=== PATIENT | female | born 1930 | race African-American/Black ===

== ENCOUNTER 2020-01-20 18:18 | Inpatient (IN) | payer MEDICARE, MEDICAID, OTHER ==
[2020-01-20] MEDS ORDERED: Dexamethasone 10 MG/ML VIAL ONE (19:17)
[2020-01-20 19:51] LABS: Hemoglobin 14.1 g/dL (12.0-16.0); Mean Corpuscular HGB CONC 33.1 g/dL (32.0-36.0); Mean Corpuscular Hemoglobin 30.9 pg (27.0-31.0); Mean Corpuscular Volume 93.5 fL (78.0-98.0); Mean Platelet Volume 9.4 fL (7.4-10.4); Platelet Count 199 thou/uL (130-400); RBC Distribution Width 12.5 % (11.5-14.5); Red Blood Cell (RBC) Count 4.55 mill/uL (4.20-5.40); White Blood Cell (WBC) Count 9.5 thou/uL (4.8-10.8)
--- NOTE | 2020-01-20 20:03 | RAD ---
PORTABLE CHEST: 01/20/20 HISTORY: Dyspnea. COVID positive. COMPARISON: 08/09/06 FINDINGS/IMPRESSION: Patient is rotated distorting the chest. Mild cardiomegaly and mild vascular engorgement. I cannot ex clude hazy ground glass infiltrates in the mid lung powell. No significant effusion. POS: AGW
[2020-01-20 20:09] LABS: Band 11 % (5-11); Lymphocytes 2 % (21-51); MDiff Complete? YES; Monocytes 7 % (0-10); Neutrophil 75 % (42-75); Platelet Morphology Comment Appears Adequate; RBC Morphology Normal; Reactive Lymphocytes 5 % (0-10)
[2020-01-20 20:46] LABS: Albumin 3.2 g/dL (3.4-4.8)
[2020-01-20 20:47] LABS: Chloride 98 mmol/L (98-107); Potassium 3.8 mmol/L (3.5-5.1); Sodium 134 mmol/L (136-145)
[2020-01-20 20:48] LABS: Calcium 8.2 mg/dL (7.8-10.44); Glucose 228 mg/dL (83-110)
[2020-01-20 20:49] LABS: Protein, Total 7.2 g/dL (6.0-8.3)
[2020-01-20 20:50] LABS: Anion Gap 18 mmol/L (10-20); Bilirubin, Total 1.3 mg/dL (0.2-1.2); Carbon Dioxide 22 mmol/L (23-31)
[2020-01-20 20:51] LABS: Alkaline Phosphatase 66 U/L (40-110)
[2020-01-20 20:52] LABS: Calc. Creatinine Clearance 0 mL/min (70-130); Estimated GFR-MDRD 47
[2020-01-20 20:53] LABS: AST (SGOT) 48 U/L (5-34); BUN (Urea Nitrogen) 32 mg/dL (9.8-20.1)
[2020-01-20 20:54] LABS: ALT (SGPT) 30 U/L (8-55); Lipase 42 U/L (8-78)
[2020-01-20 20:55] LABS: CK (CPK) 494 U/L (29-168)
--- NOTE | 2020-01-20 21:26 | PDOC.HHP ---
Hospitalist HPI - History of Present Illness Hypoxia, Covid positive History of Present Illness: PCP: Dr. Hussain Vieyra The majority of the H&P was taken from the ER notes and group home staff via telephone because the patient's work of breathing made it difficult for her to speak while on NIPPV. The patient is an 89-year-old female with a past medical history significant for CHF, hypertension, hypothyroidism, TIA that presents to the emergency department via EMS from a group home for hypoxia. Patient recently tested positive for Covid 19 virus. Nursing staff reports that the patient became hypoxic with a reported SPO2 in the 70s with associated fever, general malaise and myalgias. EMS was called and the patient was taken the emergency department for further evaluation. ED Course: VITAL SIGNS SatJan 20, 2020 18:48 SUGEY Cruz Miranda BP: 150/88, Pulse: 100, Resp: 30, Temp: 100 (Axillary), O2 sat: 89 on (Non Rebreather), Time: 01/20/2020 18:48. VITAL SIGNS SatJan 20, 2020 19:16 SUGEY Cruz Miranda Pulse: 84, O2 sat: 96 on (Bipap), Time: 01/20/2020 19:16. VITAL SIGNS SatJan 20, 2020 19:18 RESP. Collins Michael Pulse: 100, Resp: 34, Time: 01/20/2020 19:18. VITAL SIGNS SatJan 20, 2020 19:16 SUGEY Cruz Miranda BP: 166/110, MAP: 128, Pulse: 93, Resp: 34, Pain: UTR, O2 sat: 96 on (Bipap), Time: 01/20/2020 19:16. VITAL SIGNS SatJan 20, 2020 20:00 SUGEY Cruz Miranda BP: 114/73, MAP: 86, Pulse: 109, Resp: 30, Pain: UTR, O2 sat: 96 on (Bipap), Time: 01/20/2020 20:00. VITAL SIGNS SatJan 20, 2020 20:41 SUGEY Cruz Miranda BP: 136/84, MAP: 101, Pulse: 107, Resp: 30, O2 sat: 96 on (Bipap), Time: 01/20/2020 20:41. Medication administration: 324 mg aspirin. Lovenox 1 milligram per kilogram Rocephin 2 g IVPB Azithromycin 500 mg IVPB Decadron 10 mg IVP 1 L normal saline Hospitalist ROS - Review of Systems ROS unobtainable: due to mental status (Patient was somnolent with increased work of breathing on NIPPV, made it difficult her speaking complete sentences.) All other systems reviewed; all pertinent +/- noted in HPI/Subj - Medication Medications: amLODIPine tablet : Strength - 10 mg : ORAL Patient Dose: once a day. aspirin oral tablet : Strength - 81 mg : ORAL Patient Dose: 81 mg once a day. Potassium chloride packet : Strength - 10 mEq : ORAL Patient Dose: 1 tablet every morning levothyroxine oral tablet : Strength - 50 mcg : ORAL Patient Dose: Unknown. 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 - Family History Other Family History: Unable to obtain at time of interview. - Social History Smoking Status: Unknown if ever smoked Alcohol: reports: None Drugs: reports: none Living Situation: [facility]) Occupation: Does not work - Exam General Appearance: ill appearing General - other findings: Somnolent, increased work of breathing on NIPPV Eye: anicteric sclera ENT: normocephalic atraumatic, dry oral mucosa Neck: supple, symmetric, no JVD Heart: RRR, no gallops, no rubs, normal peripheral pulses, II/IV Respiratory: rales, rhonchi, tachypneic Respiratory - other findings: On an IPPV Gastrointestinal: soft, non-tender, normal bowel sounds, no guarding, no rigidity Extremities: no cyanosis, no edema Neurological: no focal deficits. negative: facial droop, speech deficit Neurological - other findings: Somnolent Musculoskeletal: generalized weakness Psychiatric: oriented to person, oriented to place, oriented to time, somnolent Hospitalist Results - Labs Result Diagrams: 01/20/20 19:33 01/20/20 20:22 Lab results: WBC 9.5 thou/uL (4.8-10.8) 01/20/20 19:33 Hgb 14.1 g/dL (12.0-16.0) 01/20/20 19:33 Hct 42.5 % (36.0-47.0) 01/20/20 19: MCV 93.5 fL (78.0-98.0) 01/20/20 19:33 Plt Count 199 thou/uL (130-400) 01/20/20 19:33 Band Neuts % (Manual) 11 % (5-11) 01/20/20 19:33 Sodium 134 mmol/L (136-145) L 01/20/20 20:22 Potassium 3.8 mmol/L (3.5-5.1) 01/20/20 20:22 Chloride 98 mmol/L (98-107) 01/20/20 20:22 Carbon Dioxide 22 mmol/L (23-31) L 01/20/20 20:22 BUN 32 mg/dL (9.8-20.1) H 01/20/20 20:22 Creatinine 1.29 mg/dL (0.6-1.1) H 01/20/20 20:22 Glucose 228 mg/dL (83-110) H 01/20/20 20:22 Lactic Acid 1.0 mmol/L (0.5-2.2) 01/20/20: Calcium 8.2 mg/dL (7.8-10.44) 01/20/20 20:22 Total Bilirubin 1.3 mg/dL (0.2-1.2) H 01/20/20 20:22 AST 48 U/L (5-34) H 01/20/20 20:22 ALT 30 U/L (8-55) 01/20/20 20:22 Alkaline Phosphatase 66 U/L (40-110) 01/20/20 20:22 Creatine Kinase 494 U/L (29-168) H 01/20/20 20:22 Troponin I 0.020 ng/mL (< 0.028) 01/20/20: B-Natriuretic Peptide 96.6 pg/mL (0-100) 01/20/20 19:33 Serum Total Protein 7.2 g/dL (6.0-8.3) 01/20/20 20:22 Albumin 3.2 g/dL (3.4-4.8) L 01/20/20 20:22 Lipase 42 U/L (8-78) 01/20/20 20:22 - EKG Interpretation EKG: Sinus tachycardia pulse 103 left atrial enlargement left ventricular hypertrophy no STEMI. - Radiology Interpretation Chest x-ray Status: report reviewed by me Additional Comment: FINDINGS/IMPRESSION: Patient is rotated distorting the chest. Mild cardiomegaly and mild vascular engorgement. I cannot ex clude hazy ground glass infiltrates in the mid lung powell. No significant effusion. Hospitalist H&P A/P - Problem (1) Acute respiratory failure with hypoxia Code(s): J96.01 - ACUTE RESPIRATORY FAILURE WITH HYPOXIA Status: Acute (2) Pneumonia due to COVID-19 virus Code(s): U07.1 - COVID-19; J12.89 - OTHER VIRAL PNEUMONIA Status: Acute (3) Sepsis Code(s): A41.9 - SEPSIS, UNSPECIFIED ORGANISM Status: Acute (4) CHF (congestive heart failure) Code(s): I50.9 - HEART FAILURE, UNSPECIFIED Status: Chronic (5) Hypertension Code(s): I10 - ESSENTIAL (PRIMARY) HYPERTENSION Status: Chronic (6) Hypothyroidism Code(s): E03.9 - HYPOTHYROIDISM, UNSPECIFIED Status: Chronic (7) CKD (chronic kidney disease), stage III Code(s): N18.30 - CHRONIC KIDNEY DISEASE, STAGE 3 UNSPECIFIED Status: Chronic Qualifiers: Chronic kidney disease stage 3 subtype: stage 3a (GFR 45-59) Qualified Code(s): N18.31 - Chronic kidney disease, stage 3a - Plan Plan: 89/F with PMH recent Covid positive that presents for worsening hypoxia. Admit to [facility], inpatient status. Expected length of stay greater than 2 midnights. Presented febrile, hypotensive, tachycardic, tachypneic, hypoxic. EKG sinus tachycardia, LVH, no ST elevation. CXR mild vascular engorgement, cannot exclude hazy groundglass infiltrates in the mid lung powell. Mild cardiomegaly. Troponin negative, BNP 96, CK 494, DD 1.78 WBC 9.5, lymphocytopenia, LA 1.0 BUN 32, creatinine 1.29, BG 228 #Acute respiratory failure with hypoxia Prognosis is poor. Patient WOB Comfort care to help decrease WOB. Continue azithromycin and Rocephin. Continue dexamethasone. Lovenox 1 mg/kg. Continue NIPPV. Consult ID. Trend acute phase reactants. Isolation precautions. #Pneumonia due to COVID-19 virus Prognosis is poor. Interventions as above. #Sepsis Likely due to problems #2. Blood/urine cultures pending. Continue antibiotics as above. #CHF EKG as above, CXR mild vascular engorgement. Troponin is negative, BNP 96. Will trend troponins. Continue aspirin. #Hypertension Patient presented mildly hypertensive. Restart home dose of amlodipine. #Hypothyroidism Check TSH. Restart home dose of levothyroxine. #CKD stage III Presented BUN 32, creatinine 1.29 No baseline for comparison. No pharmacological DVT prophylaxis. No GI prophylaxis. DNAR, confirmed by group home & son via telephone. MPOA is Nabeel Alarcon at [phone]. Discussed the case with Dr. Roberto Brennan.
[2020-01-20] MEDS ORDERED: Acetaminophen 650 MG Suppository PR PRN (22:33)
[2020-01-20] MEDS ORDERED: Acetaminophen 325 MG TAB PO PRN (22:33)
[2020-01-20] MEDS ORDERED: Ondansetron PF 4 MG/2 ML Vial IVP PRN (22:33)
[2020-01-20] MEDS ORDERED: Dextrose 50% Abboject 50 ML SYRINGE SLOW IVP PRN (23:02)
[2020-01-20] MEDS ORDERED: HumaLOG 300 UNITS/3 ML VIAL SC PRN ×2 (23:02)
[2020-01-20] MEDS ORDERED: Dextrose 5% in Water 1,000 ML IV PRN (23:02)
[2020-01-20] MEDS ORDERED: Morphine 2 MG/ML VIAL SLOW IVP PRN (23:30)
[2020-01-20] MEDS ORDERED: Azithromycin 500 MG VIAL ONE (23:41)
[2020-01-20] MEDS ORDERED: cefTRIAXone\\ROCEPHIN 2 GM VIAL ONE (23:41)
[2020-01-20] MEDS ORDERED: Morphine 4 MG/ML VIAL ONE (23:41)
[2020-01-20] MEDS ORDERED: Enoxaparin Sodium 40 MG/0.4 ML SYRINGE ONE (23:46)
[2020-01-20 23:47] LABS: Troponin I 0.028 ng/mL (< 0.028)
[2020-01-20] MEDS ORDERED: Morphine 2 MG/ML VIAL ONE (23:49)
[2020-01-20] MEDS ORDERED: Enoxaparin Sodium 100 MG/ML SYRINGE ONE (23:57)
[2020-01-21 02:51] LABS: #Lymphocytes 0.6 thou/uL (1.20-3.40); #Monocytes 0.4 thou/uL (0.11-0.59); %Basophils 0.3 % (0.0-1.0); %Eosinophils 0.2 % (0.0-10.0); %Lymphocytes 5.5 % (21.0-51.0); %Monocytes 3.9 % (0.0-10.0); %Neutrophils 90.2 % (42.0-75.0); Hemoglobin 13.6 g/dL (12.0-16.0); Mean Corpuscular HGB CONC 33.1 g/dL (32.0-36.0); Mean Corpuscular Hemoglobin 31.3 pg (27.0-31.0); Mean Corpuscular Volume 94.6 fL (78.0-98.0); Platelet Count 217 thou/uL (130-400); RBC Distribution Width 12.5 % (11.5-14.5); Red Blood Cell (RBC) Count 4.35 mill/uL (4.20-5.40); White Blood Cell (WBC) Count 11.1 thou/uL (4.8-10.8)
[2020-01-21 03:15] LABS: Anion Gap 17 mmol/L (10-20); BUN (Urea Nitrogen) 34 mg/dL (9.8-20.1); Calc. Creatinine Clearance 0 mL/min (70-130); Calcium 8.1 mg/dL (7.8-10.44); Carbon Dioxide 21 mmol/L (23-31); Chloride 103 mmol/L (98-107); Estimated GFR-MDRD 49; Glucose 294 mg/dL (83-110); Sodium 137 mmol/L (136-145)
[2020-01-21 03:26] LABS: Troponin I 0.019 ng/mL (< 0.028)
[2020-01-21] MEDS ORDERED: Levothyroxine Sodium 50 MCG TAB PO SCH (06:00)
[2020-01-21] MEDS ORDERED: Potassium Chloride 10 MEQ TAB PO SCH (08:00)
[2020-01-21] MEDS ORDERED: Dexamethasone 4 mg/ml Vial ONE (08:51)
[2020-01-21] MEDS ORDERED: Enoxaparin Sodium 40 MG/0.4 ML SYRINGE ONE (08:51)
[2020-01-21] MEDS ORDERED: Dexamethasone 4 mg/ml Vial SLOW IVP SCH (09:00)
[2020-01-21] MEDS ORDERED: Aspirin 81 mg Enteric Coated Tablet PO SCH (09:00)
[2020-01-21] MEDS ORDERED: Enoxaparin Sodium 40 MG/0.4 ML SYRINGE SC SCH (09:00)
[2020-01-21] MEDS ORDERED: Amlodipine 10 MG TAB PO SCH (09:00)
[2020-01-21] MEDS ORDERED: Lisinopril/Hydrochlorothiazide 20/25 mg Tablet PO SCH (09:00)
[2020-01-21] MEDS ORDERED: Ascorbic Acid 500 mg Chewable Tablet PO SCH (11:15)
[2020-01-21] MEDS ORDERED: Zinc Sulfate 220 MG CAP PO SCH (11:15)
--- NOTE | 2020-01-21 15:30 | PDOC.DS.DS ---
Provider - Provider Date of Admission: 01/20/20 20:44 Date of Discharge: 01/21/20 Admitting Provider: Jose Angel Dia Primary Care Physician: BERNABE CUMMINGS MD Course - Hospital Course Hospital Course: Discharge diagnoses: 1. Acute hypoxic respiratory failure 2. COVID-19 pneumonia 3. Acute kidney injury Condition of patient on the day of discharge: I assessed Ms. Alarcon on the day of discharge. She was on BiPAP when I examined her. She was not answering questions. S1 and S2 were heard, regular. Lungs were clear to auscultation bilaterally. Hospital course: Ms. Alarcon is a pleasant 89-year-old lady who was admitted to [facility] on January 20, 2020 for acute hypoxic respiratory failure secondary to COVID-19 pneumonia. She was recently discharged from [facility] after being treated for COVID-19 pneumonia. Our facility was out of network for her insurance. Her medical power of collections attorney agreed for transfer to [facility]. Patient has been accepted by hospitalist physician at [facility] for transfer. Patient was treated with BiPAP at [facility] and was weaned to nonrebreather mask prior to discharge. Total amount of time spent coordinating this discharge: 32 minutes Resuscitation Status: 01/20/20 22:33 Resuscitation Status Routine Co-Sign Provider: Resuscitation Status: DNAR: NO Resuscitation Discussed with: Patient, [place] staff, son Additional comments: Confirmed with son via telephone, DNAR status, Nabeel Alarcon at [phone]. Called placed in ER and documented note in ER record also. - Labs Lab Results: 01/21/20 02:42 01/21/20 02:42 Abnormal Lab Results - Last 48 hrs 01/20/20 19:33: Lymphocytes % (Manual) 2 L 01/20/20 19:33: D-Dimer 1.78 H 01/20/20 20:22: Sodium 134 L, Carbon Dioxide 22 L, BUN 32 H, Creatinine 1.29 H, Total Bilirubin 1.3 H, AST 48 H, Creatine Kinase 494 H, Albumin 3.2 L, Globulin 4.0 H, Albumin/Globulin Ratio 0.8 L 01/21/20 02:42: Carbon Dioxide 21 L, BUN 34 H, Creatinine 1.25 H 01/21/20 02:42: WBC 11.1 H, MCH 31.3 H, Neutrophils % 90.2 H, Lymphocytes % 5.5 L, Neutrophils # 10.0 H, Lymphocytes # 0.6 L 01/21/20 02:42: C-Reactive Protein 14.05 H 01/21/20 02:42: Ferritin 648.32 H 01/21/20 02:42: D-Dimer 2.13 H Microbiology - Entire Visit 01/20/20 19:33 Venous blood - Left Hand Blood Culture - Preliminary Specimen has been received and culture in progress. No Growth to date. 01/20/20 19:33 Venous blood - Left Arm Blood Culture - Preliminary Specimen has been received and culture in progress. No Growth to date. - Physical Exam Vitals: Vital Signs (12 hours) Temp Pulse Resp Pulse Ox 01/21/20 10:26 96.8 F L 01/21/20 10:10 90 28 H 97 01/21/20 08:00 98 Weight Weight 187 lb Most Recent Monitor Data Heart Rate from ECG 67 NIBP 142/72 NIBP BP-Mean 95 Respiration from ECG 23 SpO2 98 Physical Exam: The patient was seen and examined on the day of discharge. Plan - Discharge Medications Allergies: Penicillins Allergy (Unknown, Verified 01/21/20 11:56) - Discharge Instructions Activity:: Activity as Tolerated Nourishment:: Other (NPO) Therapies:: Physical Therapy - Follow up Plan Referrals: BERNABE CUMMINGS MD [Primary Care Provider] - Disposition: OTHER HOSPITAL IN Quality - Care Measures CORE MEASURES:: N/A
[2020-01-21 16:38] VITALS: TEMP 96.7
[2020-01-21] MEDS ORDERED: Azithromycin 500 MG in Sodium Chloride 0.9% 250 ML 250 ML IVPB SCH (21:00)
[2020-01-21] MEDS ORDERED: cefTRIAXone\\ROCEPHIN 1 GM in Sodium Chloride 0.9% 100 ML IVPB SCH (21:00)
[2020-01-22] MEDS ORDERED: Zinc Sulfate 220 MG CAP PO SCH (09:00)
[2020-01-22] MEDS ORDERED: Ascorbic Acid 500 mg Chewable Tablet PO SCH (09:00)
== END 2020-01-21 16:41 | disposition short-term general hospital (02) | DRG 871 ==
LOC: ERS 18:18 → ERHOLD 20:44 → IMCU/EMU 01-21 09:53
PROVIDERS: ADMIT Internal Medicine; ATTEND Hospitalist
PROC: 8E0ZXY6 Isolation (ICD-10-PCS; principal; 2020-01-20)
DX: A41.89 Other specified sepsis (principal); U07.1 COVID-19; J12.89 Other viral pneumonia; J96.01 Acute respiratory failure with hypoxia; I13.0 Hypertensive heart and chronic kidney disease with heart failure and stage 1 through stage 4 chronic kidney disease, or unspecified chronic kidney disease; N17.9 Acute kidney failure, unspecified; Z66 Do not resuscitate; N18.31 Chronic kidney disease, stage 3a; I50.9 Heart failure, unspecified; E03.9 Hypothyroidism, unspecified; F32.9 Major depressive disorder, single episode, unspecified; Z88.0 Allergy status to penicillin; Z79.82 Long term (current) use of aspirin; Z79.01 Long term (current) use of anticoagulants; Z79.890 Hormone replacement therapy; Z79.899 Other long term (current) drug therapy; Z86.73 Personal history of transient ischemic attack (TIA), and cerebral infarction without residual deficits
CPT/HCPCS: 36415; 36416; 71045; 80048; 80053; 82550; 82728; 83605; 83690; 83735; 83880; 84443; 84484; 85025; 85379; 86140; 87040; 93005; 94660; 94760; 96365; 96367; 96372; 96375; J0456; J0696; J1100; J1650; J2270